=== PATIENT | female | born 1945 | race Asian ===

== ENCOUNTER 2016-06-18 15:56 | Outpatient (CLI) | payer OTHER ==
[~2016-06-18 15:56] MED LIST: BIOTIN1000 MCG OR; CENTRUM SILVER ULTRA OR; FORTAMET500 MG OR; GABA300C2 PO; LEVO0.0218 PO; LISI20TA24 PO; LYRICA75 MG OR; MELO-13 PO; NEXIUM40 M1 OR; PRENAPLUS OR; SIMV40TA57; SIMV40TA57 PO; SULAR8.5 MG OR; TRAZ100T OR
[2016-06-18 16:11] LABS: PLATELET COUNT 239 K/uL (152-353)
[2016-06-18 17:20] LABS: POTASSIUM 3.8 mmol/L (3.6-5.2); SODIUM 142 mmol/L (136-145)
== END 2016-06-18 20:02 | disposition home or self-care (01) ==
LOC: LABW 15:56
PROVIDERS: Internal Medicine
DX: E11.9 Type 2 diabetes mellitus without complications (principal); E03.8 Other specified hypothyroidism
CPT/HCPCS: 36415; 80053; 80061; 81000; 82043; 82570; 84439; 84443; 85027

== ENCOUNTER 2016-11-10 14:56 | Outpatient (CLI) | payer OTHER ==
[2016-11-10 16:00] LABS: PLATELET COUNT 279 K/uL (152-353)
[2016-11-10 16:51] LABS: POTASSIUM 3.7 mmol/L (3.6-5.2); SODIUM 141 mmol/L (136-145)
== END 2016-11-10 17:00 | disposition home or self-care (01) ==
LOC: MAMMO 14:56 → LABW 14:56 → MAMMO 15:00 → LABW 17:00
PROVIDERS: Internal Medicine
DX: N64.4 Mastodynia (principal); E11.9 Type 2 diabetes mellitus without complications
CPT/HCPCS: 36415; 80053; 80061; 82043; 82570; 83036; 84439; 85027

== ENCOUNTER 2017-01-12 15:51 | Outpatient (CLI) | payer OTHER | END 2017-01-12 21:31 | disposition home or self-care (01) | LOC: RAD 15:51 | DX: E11.9 Type 2 diabetes mellitus without complications (principal) ==

== ENCOUNTER 2017-03-19 04:09 | Emergency (ER) | payer OTHER ==
[~2017-03-19] VITALS: Ht 172.7 cm; Wt 96.6 kg
[2017-03-19 05:41] LABS: PLATELET COUNT 263 K/uL (152-353); POTASSIUM 3.5 mmol/L (3.6-5.2)
[2017-03-19 05:54] LABS: PARTIAL THROMBOPLASTIN TIME 23.9 SECONDS (24.5-33.6)
[2017-03-19 08:04] VITALS: BP 189/89; TEMP 98.2
== END 2017-03-19 08:09 | disposition home or self-care (01) ==
LOC: ED 04:09
PROVIDERS: Specialist
DX: N92.1 Excessive and frequent menstruation with irregular cycle (principal)
CPT/HCPCS: 80053; 81000; 85027; 85610; 85730; 99283

== ENCOUNTER 2017-08-04 15:58 | Outpatient (CLI) | payer OTHER ==
[2017-08-04 16:12] LABS: PLATELET COUNT 268 K/uL (152-353)
[2017-08-04 16:50] LABS: POTASSIUM 3.4 mmol/L (3.6-5.2)
== END 2017-08-04 19:17 | disposition home or self-care (01) ==
LOC: LABW 15:58
PROVIDERS: Internal Medicine
DX: E11.9 Type 2 diabetes mellitus without complications (principal)
CPT/HCPCS: 36415; 80053; 80061; 81000; 82043; 82570; 83036; 84443; 85027

== ENCOUNTER 2017-11-22 13:55 | Outpatient (CLI) | payer OTHER ==
[2017-11-22 15:31] LABS: POTASSIUM 3.8 mmol/L (3.6-5.2)
== END 2017-11-22 22:35 | disposition home or self-care (01) ==
LOC: LABW 13:55
PROVIDERS: Internal Medicine
DX: E11.9 Type 2 diabetes mellitus without complications (principal)
CPT/HCPCS: 36415; 80053; 81000; 83036

== ENCOUNTER 2018-04-05 16:11 | Outpatient (CLI) | payer OTHER ==
[2018-04-05 16:33] LABS: PLATELET COUNT 273 K/uL (152-353)
[2018-04-05 16:38] LABS: POTASSIUM 3.9 mmol/L (3.6-5.2)
== END 2018-04-05 19:51 | disposition home or self-care (01) ==
LOC: LAB 16:11
PROVIDERS: Internal Medicine
DX: E11.9 Type 2 diabetes mellitus without complications (principal)
CPT/HCPCS: 36415; 80053; 80061; 81000; 83036; 85027

== ENCOUNTER 2018-05-09 08:45 | Outpatient (CLI) | payer OTHER ==
[~2018-05-09] VITALS: Ht 172.7 cm; Wt 97.5 kg
== END 2018-05-09 21:05 | disposition home or self-care (01) ==
LOC: NM 08:45 → RAD 08:45 → NM 21:05
DX: R07.9 Chest pain, unspecified (principal); Z01.818 Encounter for other preprocedural examination; R94.31 Abnormal electrocardiogram [ECG] [EKG]
CPT/HCPCS: A9500; J2785

== ENCOUNTER 2018-09-21 13:15 | Outpatient (CLI) | payer OTHER ==
[2018-09-21 13:45] LABS: PLATELET COUNT 356 K/uL (152-353)
[2018-09-21 14:10] LABS: POTASSIUM 3.2 mmol/L (3.6-5.2)
== END 2018-09-21 23:59 ==
LOC: LAB 13:15
PROVIDERS: Internal Medicine
DX: E11.9 Type 2 diabetes mellitus without complications (principal); E03.8 Other specified hypothyroidism
CPT/HCPCS: 80053; 80061; 81000; 83036; 84439; 84443; 85027

== ENCOUNTER 2019-02-14 15:43 | Outpatient (CLI) | payer OTHER ==
[2019-02-14 15:59] LABS: PLATELET COUNT 245 K/uL (152-353)
[2019-02-14 17:24] LABS: POTASSIUM 3.1 mmol/L (3.6-5.2)
== END 2019-02-14 19:29 | disposition home or self-care (01) ==
LOC: LAB 15:43
PROVIDERS: Internal Medicine
DX: E11.9 Type 2 diabetes mellitus without complications (principal)
CPT/HCPCS: 80053; 80061; 81000; 82043; 82570; 83036; 84439; 84443; 85027

== ENCOUNTER 2019-04-03 15:04 | Outpatient (CLI) | payer OTHER | END 2019-04-03 19:11 | disposition home or self-care (01) | LOC: MAMMO 15:04 | DX: Z12.31 Encounter for screening mammogram for malignant neoplasm of breast (principal) ==

== ENCOUNTER 2019-07-03 17:16 | Outpatient (CLI) | payer OTHER ==
[2019-07-03 17:31] LABS: PLATELET COUNT 238 K/uL (152-353)
[2019-07-03 17:54] LABS: POTASSIUM 3.8 mmol/L (3.6-5.2)
== END 2019-07-03 21:51 | disposition home or self-care (01) ==
LOC: LAB 17:16
PROVIDERS: Internal Medicine
DX: E11.9 Type 2 diabetes mellitus without complications (principal); I10 Essential (primary) hypertension; E03.8 Other specified hypothyroidism
CPT/HCPCS: 80053; 81000; 82043; 82570; 83036; 84439; 84443; 85027

== ENCOUNTER 2019-12-04 16:42 | Outpatient (CLI) | payer OTHER ==
[2019-12-04 20:27] LABS: PLATELET COUNT 198 K/uL (152-353)
[2019-12-04 22:23] LABS: POTASSIUM 3.7 mmol/L (3.6-5.2)
== END 2019-12-04 20:04 | disposition home or self-care (01) ==
LOC: LAB 16:42
PROVIDERS: Internal Medicine
DX: E11.9 Type 2 diabetes mellitus without complications (principal); E03.8 Other specified hypothyroidism
CPT/HCPCS: 80053; 80061; 81000; 82043; 82570; 83036; 84439; 84443; 85027

== ENCOUNTER 2020-04-10 14:23 | Outpatient (CLI) | payer OTHER | END 2020-04-10 21:53 | disposition home or self-care (01) | LOC: MAMMO 14:23 | PROVIDERS: ATTEND Internal Medicine | DX: Z12.31 Encounter for screening mammogram for malignant neoplasm of breast (principal); Z13.820 Encounter for screening for osteoporosis; N95.8 Other specified menopausal and perimenopausal disorders ==

== ENCOUNTER 2020-07-02 13:58 | Day surgery (SDC) | payer OTHER ==
[2020-06-26 13:36] LABS: PLATELET COUNT 211 K/uL (152-353)
[2020-06-26 14:06] LABS: POTASSIUM 3.8 mmol/L (3.6-5.2)
== END 2020-07-02 16:30 | disposition home or self-care (01) ==
LOC: OR 13:58
PROVIDERS: ATTEND Internal Medicine Gastroenterology
PROC: 0DB98ZZ Excision of Duodenum, Via Natural or Artificial Opening Endoscopic (ICD-10-PCS; principal; 2020-07-02)
PROC: 0DB68ZZ Excision of Stomach, Via Natural or Artificial Opening Endoscopic (ICD-10-PCS; 2020-07-02)
DX: K21.00 Gastro-esophageal reflux disease with esophagitis, without bleeding (principal); K29.50 Unspecified chronic gastritis without bleeding; B96.81 Helicobacter pylori [H. pylori] as the cause of diseases classified elsewhere; D50.8 Other iron deficiency anemias; Z20.822 Contact with and (suspected) exposure to COVID-19
CPT/HCPCS: 80053; 85027; 87635; J2704; U0003

== ENCOUNTER 2021-06-03 17:39 | Outpatient (CLI) | payer OTHER ==
[2021-06-03 17:55] LABS: PLATELET COUNT 218 K/uL (152-353)
== END 2021-06-03 19:24 | disposition home or self-care (01) ==
LOC: LAB 17:39
PROVIDERS: ATTEND Internal Medicine
DX: E11.9 Type 2 diabetes mellitus without complications (principal)
CPT/HCPCS: 80053; 80061; 81000; 83036; 84439; 84443; 85027

== ENCOUNTER 2021-06-08 14:06 | Outpatient (CLI) | payer OTHER | END 2021-06-08 19:03 | disposition home or self-care (01) | LOC: MAMMO 14:06 | PROVIDERS: ATTEND Internal Medicine | DX: E11.9 Type 2 diabetes mellitus without complications (principal); Z12.31 Encounter for screening mammogram for malignant neoplasm of breast; Z13.820 Encounter for screening for osteoporosis; M81.0 Age-related osteoporosis without current pathological fracture ==

== ENCOUNTER 2021-06-16 15:07 | Outpatient (CLI) | payer OTHER ==
[~2021-06-16] VITALS: Ht 172.7 cm; Wt 86.2 kg
[2021-06-16 15:44] VITALS: BP 138/76; TEMP 98
[2021-06-16 16:30] VITALS: BP 132/78; TEMP 98
== END 2021-06-16 19:00 | disposition home or self-care (01) ==
LOC: INF 15:07
PROVIDERS: ATTEND Internal Medicine
DX: M81.0 Age-related osteoporosis without current pathological fracture (principal)
CPT/HCPCS: 36415; 82310; 96372; J0897

== ENCOUNTER 2022-01-13 15:10 | Outpatient (CLI) | payer OTHER ==
[~2022-01-13] VITALS: Ht 167.6 cm; Wt 94.3 kg
[2022-01-13 15:28] VITALS: BP 178/89; TEMP 98.2
== END 2022-01-13 19:00 | disposition home or self-care (01) ==
LOC: INF 15:10
PROVIDERS: ATTEND Internal Medicine
DX: M81.0 Age-related osteoporosis without current pathological fracture (principal)
CPT/HCPCS: 36415; 82310; 96372; J0897

== ENCOUNTER 2022-04-02 15:29 | Outpatient (CLI) | payer OTHER ==
[2022-04-02 16:21] LABS: POTASSIUM 3.4 mmol/L (3.6-5.2)
== END 2022-04-02 18:58 | disposition home or self-care (01) ==
LOC: LABW 15:29
PROVIDERS: ATTEND Nurse Practitioner Adult Health
DX: E78.49 Other hyperlipidemia (principal); Z09 Encounter for follow-up examination after completed treatment for conditions other than malignant neoplasm
CPT/HCPCS: 36415; 80048

== ENCOUNTER 2022-07-16 14:06 | Outpatient (CLI) | payer OTHER ==
[~2022-07-16] VITALS: Ht 172.7 cm; Wt 93.4 kg
[2022-07-16 14:15] VITALS: BP 153/86; TEMP 98.6
== END 2022-07-16 19:29 | disposition home or self-care (01) ==
LOC: INF 14:06
PROVIDERS: ATTEND Internal Medicine
DX: M81.0 Age-related osteoporosis without current pathological fracture (principal)
CPT/HCPCS: 36415; 82310; 96372; J0897

== ENCOUNTER 2022-09-15 11:07 | Outpatient (CLI) | payer OTHER | END 2022-09-15 19:07 | disposition home or self-care (01) | LOC: CT 11:07 → MAMMO 11:07 → CT 19:07 | PROVIDERS: ATTEND Obstetrics & Gynecology Gynecologic Oncology | DX: C54.1 Malignant neoplasm of endometrium (principal); Z12.31 Encounter for screening mammogram for malignant neoplasm of breast | CPT/HCPCS: 36415; 82565; 84520; Q9963 ==

== ENCOUNTER 2022-09-21 14:48 | Outpatient (CLI) | payer OTHER ==
[2022-09-21 15:21] LABS: POTASSIUM 4.2 mmol/L (3.6-5.2)
[2022-09-21 15:25] LABS: PLATELET COUNT 204 K/uL (152-353)
== END 2022-09-21 18:59 | disposition home or self-care (01) ==
LOC: LAB 14:48
PROVIDERS: ATTEND Internal Medicine
DX: E11.9 Type 2 diabetes mellitus without complications (principal)
CPT/HCPCS: 80053; 80061; 81002; 83036; 84439; 84443; 85027

== ENCOUNTER 2022-10-18 14:48 | Outpatient (CLI) | payer OTHER | END 2022-10-18 19:10 | disposition home or self-care (01) | LOC: LABW 14:48 | PROVIDERS: ATTEND Specialist | DX: I10 Essential (primary) hypertension (principal) | CPT/HCPCS: 36415; 80048 ==